=== PATIENT | male | born 1990 | race Caucasian/White ===

== ENCOUNTER 2016-06-03 07:55 | Inpatient (IN) | payer MEDICAID ==
[~2016-06-03] VITALS: Ht 172.7 cm; Wt 73.5 kg
[~2016-06-03 07:55] MED LIST: DIVA500T35 PO
[2016-06-03] MEDS ORDERED: HYD25 PO (08:26)
[2016-06-03] MEDS ORDERED: VENL25TA47 PO (08:26)
[2016-06-03 08:32] LABS: BASOPHILS % (AUTO) 0.6 % (0.0-2.0); EOSINOPHILS % (AUTO) 2.7 % (1.0-6.0); HEMATOCRIT 43.6 % (41-53); HEMOGLOBIN 14.5 g/dL (13.5-17.5); LYMPHOCYTES % (AUTO) 25.6 % (22.0-44.0); MEAN CORPUSCULAR HEMOGLOBIN 30.5 pg (26.0-34.0); MEAN CORPUSCULAR HGB CONC 33.4 G/dL (31.0-37.0); MEAN CORPUSCULAR VOLUME 91 fL (80-100); MONOCYTES # (AUTO) 0.6 K/uL (0.1-1.0); MONOCYTES % (AUTO) 7.3 % (2.0-9.0); NEUTROPHILS # (AUTO) 4.9 K/uL (1.8-7.7); NEUTROPHILS % (AUTO) 63.8 % (40.0-70.0); PLATELET COUNT (AUTO) 261 K/uL (150-450); RED BLOOD CELL COUNT(AUTO) 4.77 MIL/uL (4.50-5.90); RED CELL DISTRIBUTION WIDTH 12.5 % (11.5-14.5); WHITE BLOOD COUNT (AUTO) 7.7 K/uL (4.5-11.0)
[2016-06-03 08:56] LABS: ANION GAP 13 mmol/L (8-16); CALCIUM, TOTAL 9.1 mg/dL (8.8-10.5); CARBON DIOXIDE 25 mmol/L (22-29); CHLORIDE 104 mmol/L (98-107); CREATININE 1.42 mg/dL (0.60-1.30); GLOMERULAR FILTR. RATE CALC 60 mL/min (>60); POTASSIUM 3.5 mmol/L (3.5-5.1); SODIUM SERUM 142 mmol/L (136-145); UREA NITROGEN, BLOOD 12 mg/dL (7-18)
[2016-06-03 09:00] LABS: ALANINE AMINOTRANSFERASE 20 U/L (12-78); ALBUMIN 4.2 g/dL (3.4-5.0); ASPARTATE AMINOTRANSFERASE 18 U/L (15-37); BILIRUBIN,TOTAL 1.7 mg/dL (0.1-1.0); TOTAL PROTEIN, SERUM 7.6 g/dL (6.4-8.2)
[2016-06-03] MEDS ORDERED: LORazepam 2 MG TABLET PO ONE (09:00)
[2016-06-03] MEDS ORDERED: HALOPERIDOL 5 MG TABLET PO ONE (09:00)
[2016-06-03] MEDS ORDERED: HALOPERIDOL 5 MG TABLET PO PRN (09:00)
[2016-06-03] MEDS ORDERED: ZOLPIDEM TARTRATE 10 MG TABLET PO PRN (09:00)
[2016-06-03 14:00] VITALS: BP 116/72
[2016-06-03] MEDS ORDERED: INFLUENZA VIRUS VACCINE QVS 2016-17 (3YR+)/PF 60 MCG/0.5 ML SYRINGE IM ONE (16:00)
[2016-06-03] MEDS ORDERED: PNEUMOCOCCAL VACCINE POLYVALENT 0.5 ML VIAL [PPSV23] IM ONE (16:00)
[2016-06-03 17:07] VITALS: BP 124/81
[2016-06-04 06:35] VITALS: BP 126/79
[2016-06-04 08:56] VITALS: BP 105/60
[2016-06-04] MEDS: HALOPERIDOL 5 MG TABLET PO SCH ×2 (09:33→17:27)
[2016-06-04] MEDS: BENZTROPINE MESYLATE 0.5 MG TABLET PO SCH ×2 (09:33→17:27)
[2016-06-04 16:21] VITALS: BP 122/72
[2016-06-05 06:40] VITALS: BP 108/65
[2016-06-05 08:19] VITALS: BP 106/58
[2016-06-05] MEDS: HALOPERIDOL 5 MG TABLET PO SCH ×2 (09:47→17:05)
[2016-06-05] MEDS: BENZTROPINE MESYLATE 0.5 MG TABLET PO SCH ×2 (09:56→17:05)
[2016-06-05] MEDS: LORazepam 2 MG TABLET PO PRN ×3 (10:13→22:24)
[2016-06-05 16:30] VITALS: BP 114/69
[2016-06-06] MEDS ORDERED: BENZ0.5T6 PO (01:25)
[2016-06-06] MEDS ORDERED: HALO5 PO (01:25)
[2016-06-06 04:57] VITALS: BP 101/67
[2016-06-06 09:08] VITALS: BP 112/82
[2016-06-06] MEDS: BENZTROPINE MESYLATE 0.5 MG TABLET PO SCH (11:39)
[2016-06-06] MEDS: LORazepam 2 MG TABLET PO PRN (11:39)
[2016-06-06] MEDS: HALOPERIDOL 5 MG TABLET PO SCH (11:39)
== END 2016-06-06 11:55 | disposition home or self-care (01) | DRG 750 ==
LOC: EMS 07:57 → B3A 12:31
PROVIDERS: ADMIT Psychiatry & Neurology Psychiatry; ATTEND Psychiatry & Neurology Psychiatry
DX: F25.0 Schizoaffective disorder, bipolar type (principal); R45.851 Suicidal ideations; F14.20 Cocaine dependence, uncomplicated; R45.850 Homicidal ideations; F43.10 Post-traumatic stress disorder, unspecified; F41.9 Anxiety disorder, unspecified; R00.1 Bradycardia, unspecified; F10.10 Alcohol abuse, uncomplicated; Z71.41 Alcohol abuse counseling and surveillance of alcoholic; Z71.51 Drug abuse counseling and surveillance of drug abuser; Z79.899 Other long term (current) drug therapy; Z59.0 Homelessness; Z28.21 Immunization not carried out because of patient refusal; Z91.5 Personal history of self-harm
CPT/HCPCS: 90471; 99285; G0480

== ENCOUNTER 2017-03-04 01:49 | Emergency (ER) | payer MEDICAID ==
[~2017-03-04] VITALS: Ht 175.3 cm; Wt 79.5 kg
[~2017-03-04 01:49] MED LIST changes: +BENZ0.5T6 PO; -DIVA500T35 PO; +HALO5 PO
[2017-03-04 02:18] LABS: BASOPHILS % (AUTO) 0.6 % (0.0-2.0); EOSINOPHILS % (AUTO) 1.3 % (1.0-6.0); HEMOGLOBIN 14.6 g/dL (13.5-17.5); LYMPHOCYTES % (AUTO) 34.7 % (22.0-44.0); MEAN CORPUSCULAR HEMOGLOBIN 31.7 pg (26.0-34.0); MEAN CORPUSCULAR HGB CONC 34.9 G/dL (31.0-37.0); MEAN CORPUSCULAR VOLUME 91 fL (80-100); MONOCYTES # (AUTO) 0.5 K/uL (0.1-1.0); MONOCYTES % (AUTO) 6.2 % (2.0-9.0); NEUTROPHILS # (AUTO) 4.9 K/uL (1.8-7.7); NEUTROPHILS % (AUTO) 57.2 % (40.0-70.0); PLATELET COUNT (AUTO) 258 K/uL (150-450); RED BLOOD CELL COUNT(AUTO) 4.62 MIL/uL (4.50-5.90); RED CELL DISTRIBUTION WIDTH 12.8 % (11.5-14.5); WHITE BLOOD COUNT (AUTO) 8.5 K/uL (4.5-11.0)
[2017-03-04 02:25] LABS: ANION GAP 11 mmol/L (8-16); CALCIUM, TOTAL 8.7 mg/dL (8.8-10.5); CARBON DIOXIDE 27 mmol/L (22-29); CHLORIDE 106 mmol/L (98-107); CREATININE 1.05 mg/dL (0.60-1.30); GLOMERULAR FILTR. RATE CALC > 60 mL/min (>60); POTASSIUM 3.8 mmol/L (3.5-5.1); SODIUM SERUM 144 mmol/L (136-145); UREA NITROGEN, BLOOD 13 mg/dL (7-18)
[2017-03-04 02:30] LABS: ALANINE AMINOTRANSFERASE 22 U/L (12-78); ASPARTATE AMINOTRANSFERASE 17 U/L (15-37); BILIRUBIN,TOTAL 0.4 mg/dL (0.1-1.0); TOTAL PROTEIN, SERUM 7.6 g/dL (6.4-8.2)
[2017-03-04 02:41] LABS: ALBUMIN 4.1 g/dL (3.4-5.0)
[2017-03-04 06:35] VITALS: BP 120/69
== END 2017-03-04 08:12 | disposition home or self-care (01) ==
LOC: EMS 01:50
DX: F10.10 Alcohol abuse, uncomplicated (principal); F32.9 Major depressive disorder, single episode, unspecified; F43.10 Post-traumatic stress disorder, unspecified
CPT/HCPCS: 36415; 80053; 80307; 85025; 99285; G0480